=== PATIENT | male | born 1960 | race Caucasian/White ===

== ENCOUNTER 2023-04-25 12:09 | Emergency (ER) | payer MEDICARE ==
[~2023-04-25] VITALS: Ht 175.3 cm; Wt 74.8 kg
[2023-04-25 12:35] VITALS: TEMP 98.7
[2023-04-25 13:36] LABS: BASOPHILS % (AUTO) 0.4 % (0-1); EOSINOPHILS # (AUTO) 0.3 X10'3 (0-0.9); EOSINOPHILS % (AUTO) 3.8 % (0-6); HEMATOCRIT 41.3 % (42.0-52.0); HEMOGLOBIN 14.2 g/dl (14.0-17.9); LYMPHOCYTES # (AUTO) 1.9 X10'3 (1.1-4.8); MEAN CORPUSCULAR HEMOGLOBIN 33.7 PG (27.0-31.0); MEAN CORPUSCULAR HGB CONC 34.4 g/dL (33.0-36.5); MEAN CORPUSCULAR VOLUME 97.8 FL (78-98); MEAN PLATELET VOLUME 8.5 FL (7.4-10.4); MONOCYTES # (AUTO) 0.6 X10'3 (0-0.9); MONOCYTES % (AUTO) 7.6 % (2-12); NEUTROPHILS # (AUTO) 5.5 X10'3 (1.8-7.7); NEUTROPHILS % (AUTO) 65.2 % (42-75); PLATELET COUNT 195 X10'3 (140-440); RED BLOOD COUNT 4.22 X10'6 (4.70-6.10); RED CELL DISTRIBUTION WIDTH 13.5 % (11.5-14.5); WHITE BLOOD COUNT 8.4 X10'3 (4.5-11.0)
[2023-04-25 13:58] LABS: ALANINE AMINOTRANSFERASE 23 U/L (12-78); ALBUMIN 3.6 G/DL (3.4-5.0); ALKALINE PHOSPHATASE 148 IU/L (46-116); ANION GAP 9 (8-16); ASPARTATE AMINO TRANSFERASE 26 U/L (10-37); BILIRUBIN,TOTAL 0.6 MG/DL (0.1-1.0); BLOOD UREA NITROGEN 19 MG/DL (7-18); BUN/CREATININE RATIO 15.2 (10.0-20.0); C-REACTIVE PROTEIN 0.74 MG/DL (0.0-0.5); CALCIUM 9.3 MG/DL (8.5-10.1); CHLORIDE 108 MMOL/L (99-107); CREATININE 1.25 MG/DL (0.60-1.10); GLUCOSE 69 MG/DL (70-104); SODIUM 142 MMOL/L (135-145); TOTAL CARBON DIOXIDE 24.6 MMOL/L (24-32); TOTAL PROTEIN 7.2 G/DL (6.4-8.2); eCRCL 60 ML/MIN; eGFR 58 ML/MIN
[2023-04-25 19:22] LABS: BILIRUBIN,URINE NEGATIVE (Neg); CLARITY,URINE CLEAR (Clear); COLOR,URINE STRAW (Yellow); GLUCOSE, URINE NEGATIVE (Neg); KETONES,URINE NEGATIVE (Neg); LEUKOCYTE ESTERASE ,URINE TRACE (Neg); NITRITES, URINE NEGATIVE (Neg); OCCULT BLOOD,URINE NEGATIVE (Neg); PROTEIN,URINE NEGATIVE (Neg); UROBILINOGEN,URINE 0.2 E.U/dL (0.2-1.0)
[2023-04-25 19:23] LABS: UA COLLECTION TYPE NON-SPECIFIED
[2023-04-25 19:24] LABS: LIPASE 7 U/L (16-77)
[2023-04-25] MEDS: morphine 4 MG/ML inj SYRINge IV ONE ×2 (19:24→20:31)
[2023-04-25] MEDS: normal saline 1000ml 1,000 ML IV ONE (19:24)
[2023-04-25] MEDS: ondansetron/PF 4mg/2ml inj IV ONE (19:24)
[2023-04-25 19:33] LABS: BACTERIA,URINE FEW /HPF (Neg); MUCUS STRANDS NONE SEEN /LPF (Neg); RBC,URINE 0-2 /HPF (0-2); SQUAMOUS EPITHELIAL CELL,UR FEW /LPF (FEW); WBC,URINE 0-4 /HPF (0-4)
[2023-04-25] MEDS: LIDOcaine 2% Viscous 15ml cup MM ONE (19:46)
[2023-04-25] MEDS: mag hydrox/Alum hydrox/simeth 30ml oral suspension PO ONE (19:46)
[2023-04-25] MEDS ORDERED: iohexol 300mg/ml 100ml inj. ONE (19:49)
[2023-04-25] MEDS ORDERED: OXYC-145 PO (21:15)
[2023-04-25] MEDS ORDERED: PANT20TA18 PO (21:15)
[2023-04-25 21:20] VITALS: BP 170/90; PULSE 78; RESP 16; O2SAT 98
== END 2023-04-25 21:22 | disposition home or self-care (01) ==
LOC: ER 12:10
DX: S60.212A Contusion of left wrist, initial encounter (principal); R10.9 Unspecified abdominal pain; N17.9 Acute kidney failure, unspecified; K59.00 Constipation, unspecified; X58.XXXA Exposure to other specified factors, initial encounter; Y93.89 Activity, other specified; Y92.89 Other specified places as the place of occurrence of the external cause; Y99.8 Other external cause status; Z79.899 Other long term (current) drug therapy
CPT/HCPCS: 36415; 73110; 73130; 73200; 74177; 80053; 81001; 82948; 83605; 83690; 84145; 85025; 85651; 86140; 87040; 87088; 96361; 96374; 96375; 96376; 99285; J2270; J2405; J3490; J7030; Q9967